=== PATIENT | female | born 1990 | race Caucasian/White ===

== ENCOUNTER → 2018-10-24 | Outpatient (CLI) | payer OTHER | END | disposition home or self-care (01) | LOC: RADECHMAIN 11:40 | PROVIDERS: ATTEND Obstetrics & Gynecology Obstetrics | DX: O99.413 Diseases of the circulatory system complicating pregnancy, third trimester (principal); Z3A.00 Weeks of gestation of pregnancy not specified; I49.3 Ventricular premature depolarization; R00.0 Tachycardia, unspecified | CPT/HCPCS: 93225; 93226 ==

== ENCOUNTER 2018-12-18 06:00 | Inpatient (IN) | payer OTHER ==
[2018-12-18] MEDS ORDERED: OXYTOCIN 10 UNIT/ML 1 ML VIAL IM PRN (06:10)
[2018-12-18] MEDS ORDERED: TERBUTALINE 1 MG/ML VIAL SQ PRN (06:10)
[2018-12-18] MEDS ORDERED: CARBOPROST TROMETHAMINE 250 MCG/ML 1 ML AMP IM PRN (06:10)
[2018-12-18] MEDS ORDERED: METHYLERGONOVINE 0.2 MG/ML 1 ML AMP IM PRN (06:10)
[2018-12-18] MEDS ORDERED: LIDOCAINE 0.5% (PF) 5 MG/ML (50 ML SDV) SQ PRN (06:10)
[2018-12-18 06:15] VITALS: BMI 40.6
[2018-12-18] MEDS ORDERED: LACTATED RINGERS 1,000 ML IV SCH ×2 (06:15→12:30)
[2018-12-18] MEDS ORDERED: OXYTOCIN 30 UNITS/500 ML NS 30 UNIT in SALINE 1 500ML.BAG IV SCH (06:15)
[2018-12-18] MEDS: LACTATED RINGERS 1,000 ML IV SCH ×3 (06:27→16:36)
[2018-12-18 06:38] LABS: Anisocytosis Slight; Basophils % (A) 0 %; Eosinophils # (A) 0.2 k/uL (0-0.7); Eosinophils % (A) 2 %; HCT 35.4 % (34.0-46.0); Lymphocytes # (A) 1.8 k/uL (1.0-4.8); Lymphocytes % (A) 16 %; MCH 26.8 pg (25.0-35.0); MCHC 33.8 g/dL (31.0-37.0); MCV 79.2 fL (80.0-100.0); Mean Platelet Volume 7.4; Monocytes # (A) 0.5 k/uL (0-1.0); Monocytes % (A) 5 %; Neutrophils # (A) 8.1 k/uL (1.3-7.7); Neutrophils % (A) 75 %; Platelet Count 340 k/uL (150-450); Poikilocytosis Slight; RBC 4.47 m/uL (3.80-5.40); RDW 16.1 % (11.5-15.5); WBC 10.9 k/uL (3.8-10.6)
--- NOTE | 2018-12-18 08:32 | P.HPOB ---
History of Present Illness H&P Date: 12/18/18 Chief Complaint: IUP @ 39 0/7 weeks This is a pleasant 28-year-old 2 para 1001 at 39-0/7 weeks that presents to labor and delivery for elective induction of labor. Patient has been receiving routine care since approximately 11 weeks of gestation. care has been uncomplicated. Patient notes good movement she denies contractions, loss of fluid or vaginal bleeding. On blood work she had a blood type of AB+, rubella immune, RPR n onreactive, B surface antigen negative, HIV negative, she did pass her 1 hour diabetes screen, group beta strep was negative on 11/26/18. Review of Systems Constitutional: Denies chills, Denies fatigue, Denies fever Cardiovascular: Reports leg edema Respiratory: Denies dyspnea Gastrointestinal: Denies nausea, Denies vomiting Genitourinary: Reports Psychiatric: Reports anxiety Past Medical History Past Medical History: Asthma History of Any Multi-Drug Resistant Organisms: None Reported Past Surgical History: Adenoidectomy, Tonsillectomy Past Anesthesia/Blood Transfusion Reactions: No Reported Reaction Past Psychological History: Depression, PTSD Smoking Status: Former smoker Past Drug Use History: None Reported - Past Family History Mother Family Medical History: Thyroid Disorder Medications and Allergies Home Medications Medication Instructions Recorded Confirmed Type Albuterol Sulfate [Proair Hfa] 1 - 2 puff INHALATION Q4H PRN #1 10/26/18 12/18/18 Rx inhaler Amoxicillin 1 tab PO ONCE 12/18/18 12/18/18 History Allergies Allergy/AdvReac Type Severity Reaction Status Date / Time No Known Allergies Allergy Verified 12/18/18 06:10 Exam Osteopathic Statement: *. No significant issues noted on an osteopathic structural exam other than those noted in the History and Physical/Consult. Vital Signs Temp Pulse Resp BP Pulse Ox 12/18/18 06:03 97.2 F L 117 H 18 123/74 94 L Intake and Output 12/17/18 12/18/18 12/18/18 22:59 06:59 14:59 Other: Weight 97.522 kg Targeted physical exam is performed on this date in general this a well- nourished well-developed female in no acute distress, she exhibits nonlabored breathing in her heart is noted have a regular rate and rhythm, her abdomen is noted to be gravid and appropriate for gestational age, cervix is 2/50/-3 amniotomy is performed and clear fluid was obtained. heart tones are noted to be category 1 with occasional variables and she is nanette every 3-4 minutes. Results Result Diagrams: 12/18/18 06:26 Abnormal Lab Results - Last 24 Hours (Table) 12/18/18 Range/Units 06:26 WBC 10.9 H (3.8-10.6) k/uL MCV 79.2 L (80.0-100.0) fL RDW 16.1 H (11.5-15.5) % Neutrophils # 8.1 H (1.3-7.7) k/uL Assessment and Plan (1) Term Current Visit: Yes Status: Acute Code(s): Z34.90 - ENCNTR FOR SUPRVSN OF NORMAL , UNSP, UNSP TRIMESTER SNOMED Code(s): 03431646 (2) Asthma Current Visit: Yes Status: Acute Code(s): J45.909 - UNSPECIFIED ASTHMA, UNCOMPLICATED SNOMED Code(s): 942846936 (3) ADD (attention deficit disorder) Current Visit: Yes Status: Acute Code(s): F98.8 - OTH BEHAV/EMOTN DISORD W ONSET USLY OCCUR IN CHLDHD AND ADOL SNOMED Code(s): 12751075 Plan: Patient is admitted to labor and delivery for Pitocin induction of labor, anticipate spontaneous vaginal delivery later today. Patient does request epidural placement by anesthesia when she becomes uncomfortable.
[2018-12-18] MEDS ORDERED: SUCCINYLCHOLINE CHLORIDE 100 MG/5 ML SYR IV ONE (11:19)
[2018-12-18] MEDS ORDERED: fentaNYL (PF) 50 MCG/ML 2 ML AMP ONE (11:19)
[2018-12-18] MEDS ORDERED: ePHEDrine SULFATE/0.9% NACL/PF 50 MG/5 ML SYRINGE IV ONE (11:19)
[2018-12-18] MEDS ORDERED: ONDANSETRON 4 MG/2 ML VIAL ONE (11:19)
[2018-12-18] MEDS ORDERED: MIDAZOLAM 2 MG/2 ML VIAL ONE (11:19)
[2018-12-18] MEDS ORDERED: PROPOFOL 10 MG/ML 20 ML VIAL IV ONE (11:19)
[2018-12-18] MEDS ORDERED: OXYTOCIN 10 UNIT/ML 1 ML VIAL ONE (11:19)
[2018-12-18] MEDS ORDERED: METOCLOPRAMIDE 5 MG/ML 2 ML VIAL IVP PRN (12:18)
[2018-12-18] MEDS ORDERED: diphenhydrAMINE 50 MG/ML 1 ML VIAL IVP PRN ×4 (12:18→19:14)
[2018-12-18] MEDS ORDERED: diphenhydrAMINE 50 MG CAP PO PRN ×2 (12:18→19:14)
[2018-12-18] MEDS ORDERED: ONDANSETRON 4 MG/2 ML VIAL IVP PRN (12:18)
[2018-12-18] MEDS ORDERED: diphenhydrAMINE 25 MG CAP PO PRN ×2 (12:18→19:14)
[2018-12-18] MEDS ORDERED: NALOXONE 0.4 MG/ML 1 ML VIAL IV PRN (12:18)
[2018-12-18] MEDS ORDERED: IBUPROFEN 600 MG TAB PO PRN (12:18)
[2018-12-18] MEDS ORDERED: ZOLPIDEM 5 MG TAB PO PRN ×2 (12:18→19:14)
[2018-12-18] MEDS ORDERED: HYDROcodone/APAP 5-325MG 1 EACH TAB PO PRN (12:18)
[2018-12-18] MEDS ORDERED: ACETAMINOPHEN TAB 325 MG TAB PO PRN ×2 (12:18→19:14)
--- NOTE | 2018-12-18 12:18 | P.OP ---
Date of Procedure: 12/18/18 Preoperative Diagnosis: IUP @39 0/7 weeks, NRFHTs Postoperative Diagnosis: same Procedure(s) Performed: Primary low transverse section Anesthesia: ANÍBAL Surgeon: Ora Mckay Civil Estimator #1: Jazzy Ramos Estimated Blood Loss (ml): 500 IV fluids (ml): 1,000 Urine output (ml): 200 Pathology: other (Placenta) Condition: stable Disposition: observation Indications for Procedure: This pleasant 28-year-old 2 para 1 at 39-0/7 weeks was admitted for labor and delivery for elective induction of labor. Patient was noted have variables with reassuring moderate variability in between, category 1. Patient was at the bedside swaying requested to go to the bathroom when she came back scalp electrode had, off upon vaginal exam the nurse noted her to be 2 cm, and palpated umbilical cord. heart tones were noted to be in the 90s patient was taken to the operating suite for a emergent . In the operating room heart tones were noted to be 100s with upward pressure on the head. Operative Findings: Normal uterus tubes and ovaries were appreciated amniotic fluid was noted to be clear. Viable male delivered at 1128, weight of 7 lbs. 8 oz. with Apgars of 5 and 8 at one and 5 minutes respectively. Description of Procedure: The patient was taken to the operating suite where general anesthesia was obtained without difficulty by the anesthesia department prior to anesthesia she was prepped and draped in normal sterile fashion. A Pfannenstiel skin incision was made with the scalpel and carried through to the underlying layer of fascia which was incised and extended laterally. The anterior aspect of the fascial incision was then grasped with koher clamps, elevated and underlying rectus muscles dissected off sharply. This was then repeated with the inferior aspect of the fascial incision. The rectus muscles were then in the midline the peritoneum was identified and entered. The bladder blade was then inserted into the abdomen a hysterotomy incision was then made in the infant was delivered without difficulty and handed off to waiting die engraver. The cord was then doubly clamped and cut prior to handing off the . The placenta was then removed manually and the uterus was cleared of all clots and debris. The uterus was then removed from the abdomen and the hysterotomy incision was closed 0 Vicryl in a running fashion from one lateral to midline and the other lateral edge the midline. Small bleeding was noted in the midline portion of the hysterotomy site therefore a [id number] suture was used to obtain hemostasis. The placenta was then copiously irrigated and hemostasis was appreciated once again on the hysterotomy site. The uterus was returned to the abdomen inspection of the hysterotomy site for a third time revealed hemostasis. The gutters were cleared of all clots and debris. The fascia was then closed in a running fashion from one lateral edge the midline and the other lateral edge the midline. The subcu tissue was then irrigated and closed with 3-0 Vicryl. The skin incision was then closed with 4-0 Vicryl in a subcuticular fashion. Since the was done prior to an official count was completed x-ray was then in the room. Steri-Strips and sterile dressings were applied as needed APPEARED to be correct 2, patient was taken to the her room awake in stable condition.
[2018-12-18] MEDS ORDERED: ALBUTEROL NEBULIZED 2.5 MG/3 ML INHALATION PRN (12:24)
--- NOTE | 2018-12-18 12:25 | XR ---
EXAMINATION TYPE: XR abdomen 1V DATE OF EXAM: 12/18/2018 Comparison: None Clinical History: 28-year-old female OR count verification, emergency Findings: No retained sponge or metallic surgical instrument is identified. Enlarged uterus compatible with rec ent delivery. Impression: No retained sponge or metallic surgical instrument identified.
[2018-12-18] MEDS ORDERED: OXYTOCIN 20 UNITS/1000 ML NS 1,000 ML IV SCH ×2 (12:30→19:14)
[2018-12-18] MEDS ORDERED: IBUPROFEN IV 800 MG in SODIUM CHLORIDE 0.9% 250 ML IV ONE (13:00)
[2018-12-18] MEDS ORDERED: ACETAMINOPHEN IV (For NPO) 1,000 MG in EMPTY BAG 1 BAG IVPB ONE (13:00)
[2018-12-18] MEDS ORDERED: HYDROCORTISONE 2.5% RECTAL CREAM 30 GM TUBE RECTAL PRN (19:14)
[2018-12-18] MEDS ORDERED: LANOLIN CREAM 5 GM TUBE TOPICAL PRN (19:14)
[2018-12-18] MEDS ORDERED: BENZOCAINE/MENTHOL SPRAY 1 GM/SPRAY AEROSOL TOPICAL PRN (19:14)
[2018-12-18] MEDS ORDERED: WITCH HAZEL 1 EACH MED..PAD TOPICAL PRN (19:14)
[2018-12-18] MEDS ORDERED: SIMETHICONE 80 MG CHEWABLE PO PRN (19:14)
[2018-12-18] MEDS ORDERED: SENNOSIDES-DOCUSATE SODIUM 1 EACH TAB PO SCH (20:00)
[2018-12-18] MEDS: IBUPROFEN 600 MG TAB PO PRN (21:55)
[2018-12-18] MEDS: SENNOSIDES-DOCUSATE SODIUM 1 EACH TAB PO SCH (22:00)
[2018-12-19] MEDS: LACTATED RINGERS 1,000 ML IV SCH (00:55)
[2018-12-19] MEDS: HYDROcodone/APAP 5-325MG 1 EACH TAB PO PRN ×4 (01:03→20:06)
[2018-12-19] MEDS: IBUPROFEN 600 MG TAB PO PRN ×4 (03:43→23:04)
[2018-12-19 07:18] LABS: Anisocytosis Slight; Basophils % (A) 0 %; Eosinophils # (A) 0.2 k/uL (0-0.7); Eosinophils % (A) 2 %; HCT 28.9 % (34.0-46.0); Lymphocytes # (A) 1.2 k/uL (1.0-4.8); Lymphocytes % (A) 13 %; MCH 26.4 pg (25.0-35.0); MCHC 32.6 g/dL (31.0-37.0); MCV 80.9 fL (80.0-100.0); Mean Platelet Volume 7.7; Monocytes # (A) 0.5 k/uL (0-1.0); Monocytes % (A) 5 %; Neutrophils # (A) 7.3 k/uL (1.3-7.7); Neutrophils % (A) 79 %; Platelet Count 263 k/uL (150-450); RBC 3.57 m/uL (3.80-5.40); RDW 16.5 % (11.5-15.5); WBC 9.3 k/uL (3.8-10.6)
[2018-12-19 07:28] LABS: HGB 9.4 gm/dL (11.4-16.0)
--- NOTE | 2018-12-19 07:43 | P.PN ---
Subjective Progress Note Date: 12/19/18 Principal diagnosis: Postoperative day #1 Slept well. Positive flatus. Pain well controlled. No complaints Objective - Vital Signs Vital signs: Vital Signs Temp 98.1 F 12/19/18 03:45 Pulse 88 12/19/18 03:45 Resp 18 12/19/18 03:45 BP 109/64 12/19/18 03:45 Pulse Ox 99 12/19/18 03:45 Intake & Output 12/18/18 12/19/18 12/19/18 18:59 06:59 18:59 Intake Total 100 Output Total 750 3150 Balance -750 -3050 Intake: Oral 100 Output: Urine 750 3150 Uretheral (Islas) 1000 Other: # Voids 1 - Constitutional General appearance: Present: average body habitus, cooperative - EENT Eyes: Present: PERRLA ENT: Present: hearing grossly normal - Respiratory Respiratory: bilateral: CTA - Cardiovascular Rhythm: regular - Gastrointestinal Gastrointestinal Comment(s): Incision clean and dry, intact. Fundus firm, midline, symmetric, 18 week size, nontender. - Integumentary Integumentary: Present: normal - Neurologic Neurologic: Present: CNII-XII intact - Musculoskeletal Musculoskeletal: Present: gait normal, strength equal bilaterally - Psychiatric Psychiatric: Present: A&O x's 3, appropriate affect - Labs CBC & Chem 7: 12/19/18 06:43 Labs: Abnormal Lab Results - Last 24 Hours (Table) 12/19/18 Range/Units 06:43 RBC 3.57 L (3.80-5.40) m/uL Hgb 9.4 L D (11.4-16.0) gm/dL Hct 28.9 L (34.0-46.0) % RDW 16.5 H (11.5-15.5) % Assessment and Plan Assessment: Doing well postoperative day #1. Plan: Begin ferrous sulfate twice daily. Advanced diet and activity. Likely circumcision tomorrow. Time with Patient: Less than 30
[2018-12-19] MEDS: FERROUS SULFATE 325 MG TAB PO SCH ×2 (07:56→18:59)
[2018-12-19] MEDS: SENNOSIDES-DOCUSATE SODIUM 1 EACH TAB PO SCH ×2 (07:56→20:05)
[2018-12-20 00:47] VITALS: TEMP 98.3
[2018-12-20] MEDS: HYDROcodone/APAP 5-325MG 1 EACH TAB PO PRN (08:15)
[2018-12-20] MEDS: FERROUS SULFATE 325 MG TAB PO SCH (08:17)
[2018-12-20] MEDS: SENNOSIDES-DOCUSATE SODIUM 1 EACH TAB PO SCH (08:17)
--- NOTE | 2018-12-20 08:26 | P.DS ---
Providers Date of admission: 12/18/18 06:00 Expected date of discharge: 12/20/18 Attending physician: Ora Mckay Primary care physician: Stated None Hospital Course: This is a 28-year-old white female 2 para 1001 EDC 12/25/1938 weeks gestation. Patient was admitted for induction. was essentially unremarkable, group B strep cultures negative, blood type AB+, rubella status immune. Please see dictated history and physical for details. Throughout the course of the first stage of labor, heart tones were nonreassuring. Vaginal examination suggested prolapsed cord, and patient underwent a primary low transverse section with general anesthetic. She gave to a liveborn male with scores of 58 and 8 at one and 5 and 10 minutes respectively. weighed 7 lbs. 8 oz. or 3400 g. Please see dictated operative note for details. Circumcision has been performed on the who is doing well. Patient is also doing well, she is voiding, ambulating, and passing flatus without difficulty. Vital signs are stable and she is afebrile. Fundus is firm and in the midline, symmetric and 18 week size. Extremities are negative for edema. Breast-feeding is going well. I have given the patient a prescription for a double electric breast pump to be used as needed. Her incision is clean and dry, intact, Steri-Strips applied. Patient is being discharged home today in very good condition. She will follow- up in the office in 2 weeks for incision check. I have reminded her no intercourse, tampons or douching. She will use Advil or Motrin or Aleve as needed for pain. She will call with any fevers shakes or chills, foul smelling or copious lochia, with the passage of large blood clots, with any pain not alleviated by upzx-xxu-xllfero products, or indeed with any concerns. Patient Condition at Discharge: Good Plan - Discharge Summary Discharge Rx Participant: No New Discharge Prescriptions: No Action Albuterol Sulfate [Proair Hfa] 1 - 2 puff INHALATION Q4H PRN #1 inhaler PRN Reason: Shortness Of Breath Amoxicillin 1 tab PO ONCE Discharge Medication List Albuterol Sulfate [Proair Hfa] 1 - 2 puff INHALATION Q4H PRN #1 inhaler 10/26/18 [Rx] Amoxicillin 1 tab PO ONCE 12/18/18 [History] Follow up Appointment(s)/Referral(s): Ora Mckay DO [Doctor of Osteopathic Medicine] - 2 Weeks
[2018-12-20 08:30] VITALS: RESP 20
[2018-12-20 08:32] VITALS: BP 124/68; PULSE 88
== END 2018-12-20 14:15 | disposition home or self-care (01) | DRG 788 ==
LOC: 4FBP 06:00
PROVIDERS: ADMIT Obstetrics & Gynecology Obstetrics; ATTEND Obstetrics & Gynecology Obstetrics
PROC: 3E033VJ Introduction of Other Hormone into Peripheral Vein, Percutaneous Approach (ICD-10-PCS; 2018-12-18)
PROC: 10907ZC Drainage of Amniotic Fluid, Therapeutic from Products of Conception, Via Natural or Artificial Opening (ICD-10-PCS; 2018-12-18)
PROC: 4A1H7CZ Monitoring of Products of Conception, Cardiac Rate, Via Natural or Artificial Opening (ICD-10-PCS; 2018-12-18)
PROC: 4A1H7HZ Monitoring of Products of Conception, Cardiac Sound, Via Natural or Artificial Opening (ICD-10-PCS; 2018-12-18)
PROC: 4A1H7FZ Monitoring of Products of Conception, Cardiac Rhythm, Via Natural or Artificial Opening (ICD-10-PCS; 2018-12-18)
PROC: 10H073Z Insertion of Monitoring Electrode into Products of Conception, Via Natural or Artificial Opening (ICD-10-PCS; 2018-12-18)
PROC: 10D00Z1 Extraction of Products of Conception, Low, Open Approach (ICD-10-PCS; principal; 2018-12-18 11:25)
DX: O76 Abnormality in fetal heart rate and rhythm complicating labor and delivery (principal); O99.52 Diseases of the respiratory system complicating childbirth; J45.909 Unspecified asthma, uncomplicated; O99.344 Other mental disorders complicating childbirth; F98.8 Other specified behavioral and emotional disorders with onset usually occurring in childhood and adolescence; Z37.0 Single live birth; Z3A.39 39 weeks gestation of pregnancy; Z87.891 Personal history of nicotine dependence; Z98.890 Other specified postprocedural states; Z86.59 Personal history of other mental and behavioral disorders; Z83.49 Family history of other endocrine, nutritional and metabolic diseases
CPT/HCPCS: 74018; 85025; 86850; 86900; 86901; 88307

== ENCOUNTER 2019-10-18 19:46 | Emergency (ER) | payer OTHER ==
[2019-10-18 19:50] VITALS: RESP 18
[2019-10-18] MEDS ORDERED: IBUPROFEN 600 MG TAB PO STA (20:09)
[2019-10-18] MEDS ORDERED: DEXAMETHASONE 4 MG TAB PO STA (20:09)
[2019-10-18] MEDS ORDERED: ACETAMINOPHEN TAB 500 MG TAB PO STA (20:09)
[2019-10-18] MEDS ORDERED: IPRATROPIUM-ALBUTEROL 3 ML NEB INHALATION STA (20:09)
--- NOTE | 2019-10-18 20:12 | ED ---
URI HPI - General Chief Complaint: Upper Respiratory Infection Stated Complaint: Asthma; cough Time Seen by Provider: 10/18/19 20:05 Source: patient, RN notes reviewed, old records reviewed Mode of arrival: ambulatory Limitations: no limitations - History of Present Illness Initial Comments: This is a 29-year-old female DF for evaluation patient has a for evaluation of not feeling well recent exposure to influenza patient is cough and congestion history of asthma nonsmoker. No recent travel history sick contacts she have fevers no fevers have resolved. No chest pain no current shortness of breath she does feel wheezy. Again no recent travel history or sick contacts not feeling well MD Complaint: fever, cough -: days(s) Severity: moderate Severity scale (1-10): 4 Quality: dull Consistency: constant Improves With: nothing Worsens With: nothing Context: new medications Associated Symptoms: denies other symptoms Treatments Prior to Arrival: none - Related Data Home Medications Medication Instructions Recorded Confirmed Amoxicillin 1 tab PO ONCE 12/18/18 12/18/18 Previous Rx's Medication Instructions Recorded Albuterol Sulfate [Proair Hfa] 1 - 2 puff INHALATION Q4H PRN #1 10/26/18 inhaler Albuterol Nebulized [Ventolin 2.5 mg INHALATION Q4H PRN #25 nebu 10/18/19 Nebulized] Albuterol Sulfate [Proair Hfa] 1 - 2 puff INHALATION Q4H PRN #1 10/18/19 inhaler predniSONE 50 mg PO DAILY #5 tab 10/18/19 Allergies Allergy/AdvReac Type Severity Reaction Status Date / Time No Known Allergies Allergy Verified 12/18/18 06:10 Review of Systems ROS Statement: Those systems with pertinent positive or pertinent negative responses have been documented in the HPI. ROS Other: All systems not noted in ROS Statement are negative. Past Medical History Past Medical History: Asthma History of Any Multi-Drug Resistant Organisms: None Reported Past Surgical History: Adenoidectomy, Tonsillectomy Past Anesthesia/Blood Transfusion Reactions: No Reported Reaction Past Psychological History: Depression, PTSD Smoking Status: Former smoker Past Drug Use History: None Reported - Past Family History Mother Family Medical History: Thyroid Disorder General Exam Limitations: no limitations General appearance: alert, in no apparent distress Head exam: Present: atraumatic, normocephalic, normal inspection Eye exam: Present: normal appearance, PERRL, EOMI. Absent: scleral icterus, conjunctival injection, periorbital swelling ENT exam: Present: normal exam, mucous membranes moist Neck exam: Present: normal inspection. Absent: tenderness, meningismus, lymphadenopathy Respiratory exam: Present: wheezes, decreased breath sounds, prolonged expiratory. Absent: respiratory distress, rales, rhonchi, stridor Cardiovascular Exam: Present: regular rate, normal rhythm, normal heart sounds. Absent: systolic murmur, diastolic murmur, rubs, gallop, clicks GI/Abdominal exam: Present: soft, normal bowel sounds. Absent: distended, tenderness, guarding, rebound, rigid Extremities exam: Present: normal inspection, full ROM, normal capillary refill. Absent: tenderness, pedal edema, joint swelling, calf tenderness Back exam: Present: normal inspection Neurological exam: Present: alert, oriented X3, CN II-XII intact Psychiatric exam: Present: normal affect, normal mood Skin exam: Present: warm, dry, intact, normal color. Absent: rash Course Vital Signs 10/18/19 10/18/19 10/18/19 19:47 20:21 20:36 Temperature 97.9 F Pulse Rate 98 85 88 Respiratory 18 Rate Blood Pressure 104/61 O2 Sat by Pulse 98 Oximetry - Reevaluation(s) Reevaluation #1: 10/18/19 20:11 medical record is reviewed Reevaluation #2: 10/18/19 21:30 Patient feeling better with treatment here in the ER Medical Decision Making - Medical Decision Making 25 female DF for evaluation patient has a for evaluation of cough positive for influenza A with bronchitis. Patient will be discharged home - Lab Data Lab Results 10/18/19 Range/Units 20:14 Influenza Type A RNA Detected H (Not Detectd) Influenza Type B (PCR) Not Detected (Not Detectd) - Radiology Data Radiology results: report reviewed (Chest x-ray is negative for acute disease), image reviewed Disposition Clinical Impression: Asthma, Asthmatic bronchitis, Influenza, Influenza A Disposition: HOME SELF-CARE Condition: Good Instructions (If sedation given, give patient instructions): Influenza (ED), Asthma (ED) Prescriptions: predniSONE 50 mg PO DAILY #5 tab Albuterol Sulfate [Proair Hfa] 1 - 2 puff INHALATION Q4H PRN #1 inhaler PRN Reason: Shortness Of Breath Albuterol Nebulized [Ventolin Nebulized] 2.5 mg INHALATION Q4H PRN #25 nebu PRN Reason: Shortness Of Breath Is patient prescribed a controlled substance at d/c from ED?: No Referrals: Chrissy Rodriguez MD [Primary Care Provider] - 1-2 days
--- NOTE | 2019-10-18 20:48 | XR ---
EXAMINATION TYPE: XR chest 2V DATE OF EXAM: 10/18/2019 COMPARISON: 10/25/2018 HISTORY: Chest pain TECHNIQUE: FINDINGS: Heart and mediastinum are normal. Lungs are clear. Diaphragm is normal. Bony thorax appears normal. IMPRESSION: Normal chest. No change.
[2019-10-18 21:37] VITALS: BP 110/60; PULSE 85; TEMP 98
== END 2019-10-18 21:38 | disposition home or self-care (01) ==
LOC: EC 19:46
DX: J10.1 Influenza due to other identified influenza virus with other respiratory manifestations (principal); J45.909 Unspecified asthma, uncomplicated; Z87.891 Personal history of nicotine dependence
CPT/HCPCS: 94640; 87502; 71046; 99284; J8540

== ENCOUNTER 2023-01-03 07:06 | Outpatient (CLI) | payer OTHER ==
[2023-01-03 08:13] VITALS: BP 118/66; PULSE 105; RESP 16; TEMP 97.6
--- NOTE | 2023-01-24 19:13 | P.MSEPDOC ---
Presenting Problems - Arrival Data Date of Arrival on Unit: 01/03/23 Time of Arrival on Unit: 07:06 Mode of Transport: Ambulatory - Complaint OB-Reason for Admission/Chief Complaint: Other Comment: Left sided muscle pain secondary to cough Medical History - Information : 3 Para: 2 Term: 2 : 0 Abortions: Spontaneous or Elective: 0 Number of Living Children: 2 - Gestational Age Gestational Age by ANGEL (wks/days): 26 Weeks and 5 Days Review of Systems - Review of Systems Constitutional: Fatigue Breast: No problems ENT: Cough Cardiovascular: No problems Respiratory: No problems Gastrointestinal: No problems Genitourinary: No problems Musculoskeletal: No problems Neurological: No problems Skin: No problems Vital Signs - Temperature Temperature: 97.6 F Temperature Source: Temporal Artery Scan - Pulse Right Brachial Pulse Rate: 105 Pulse Assessment Method: Automatic Cuff - Respirations Respiratory Rate: 16 Oxygen Delivery Method: Room Air O2 Sat by Pulse Oximetry: 98 - Blood Pressure Right Arm Blood Pressure: 118/66 Blood Pressure Mean: 83 Blood Pressure Source: Automatic Cuff Medical Screen Scoring - Assessment - Baby A Baseline FHR: 135 Heart Rate - NICHD Category: Category I (Normal) Physician Notification - Physician Notified Physician Notified Date: 01/03/23 Physician Notified Time: 07:41 Physician: Ora Mckay New Order Received: Yes - Notification Comment Comment: Dr. Mckay given report on pt. Pt presents to triage with increase in dry unproductive cough and left sided muscle pain r/t coughing. VS WNL. O2 98%. Pt reports covid 2 months and has asthma. Pt denies attempting comfort measures. Orders recieved pt may have 1000mg Tylenol PO. Pt to be discharged to home. RN to write note on script per Dr. Mckay "Off work secondary to cough". To educate pt she may take Robutussin and tylenol PM and to rest. Maternal Triage Index - Non-Urgent/Priority 4 Non-Urgent Priority 4: Yes Criteria Met for Priority 4: Left sided muscle pain secondary to cough. Disposition - Disposition OB Disposition: Discharge to home Discharge Date: 01/03/23 Discharge Time: 07:50 I agree with the RN Medical Screening Exam: Yes Case reviewed; plan agreed upon as documented in EMR&OBIX.: Yes Diagnosis: RELATED CONDITIONS, UNSPECIFIED, THIRD TRIMESTER
== END 2023-01-03 07:50 | disposition home or self-care (01) ==
LOC: FBPOP 07:06
PROVIDERS: ATTEND Obstetrics & Gynecology
DX: O26.893 Other specified pregnancy related conditions, third trimester (principal); Z3A.26 26 weeks gestation of pregnancy; Z91.048 Other nonmedicinal substance allergy status; Z87.891 Personal history of nicotine dependence
CPT/HCPCS: 99213

== ENCOUNTER 2023-02-26 10:54 | Outpatient (CLI) | payer OTHER ==
[2023-02-26 12:30] VITALS: BP 117/69; PULSE 114; RESP 17
--- NOTE | 2023-03-20 17:55 | P.MSEPDOC ---
Presenting Problems - Arrival Data Date of Arrival on Unit: 02/26/23 Time of Arrival on Unit: 10:54 Mode of Transport: Ambulatory - Complaint OB-Reason for Admission/Chief Complaint: Decreased Movement Medical History - Information : 3 Para: 2 Term: 2 : 0 Abortions: Spontaneous or Elective: 0 Number of Living Children: 2 - Gestational Age Gestational Age by ANGEL (wks/days): 34 Weeks and 2 Days Review of Systems - Review of Systems Constitutional: No problems Breast: No problems ENT: No problems Cardiovascular: No problems Respiratory: No problems Gastrointestinal: No problems Genitourinary: No problems Musculoskeletal: No problems Neurological: No problems Skin: No problems Vital Signs - Pulse Right Brachial Pulse Rate: 114 Pulse Assessment Method: Automatic Cuff - Respirations Respiratory Rate: 17 Oxygen Delivery Method: Room Air O2 Sat by Pulse Oximetry: 98 - Blood Pressure Right Arm Blood Pressure: 117/69 Blood Pressure Mean: 85 Blood Pressure Source: Automatic Cuff Medical Screen Scoring - Assessment - Baby A Baseline FHR: 140 Heart Rate - NICHD Category: Category I (Normal) NST: Reactive Physician Notification - Physician Notified Physician Notified Date: 02/26/23 Physician Notified Time: 11:47 Physician: Ora Mckay New Order Received: Yes - Notification Comment Comment: Dr. Mckay given report on pt. Pt c/o. VS. WNL. Cat 1 FHTs noted. movement noted audibly. and by palpation. movement noted per pt less. infrequently. Orders recieved to d/c pt to home. Pt. to keep apt on 02/28. Maternal Triage Index - Urgent/Priority 2 Urgent Priority 2: Yes Provider Notified: Ora Mckay Provider Notified Time: 11:47 Criteria Met for Priority 2: Pt c/o of decreased movement. Disposition - Disposition OB Disposition: Discharge to home Discharge Date: 02/26/23 Discharge Time: 12:02 I agree with the RN Medical Screening Exam: Yes Case reviewed; plan agreed upon as documented in EMR&OBIX.: Yes Diagnosis: DECREASED MOVEMENTS, THIRD TRIMESTER, FETUS 1
== END 2023-02-26 12:02 | disposition home or self-care (01) ==
LOC: FBPOP 10:54
PROVIDERS: ATTEND Obstetrics & Gynecology Obstetrics
DX: O36.8131 Decreased fetal movements, third trimester, fetus 1 (principal); O99.333 Smoking (tobacco) complicating pregnancy, third trimester; Z3A.34 34 weeks gestation of pregnancy; Z91.048 Other nonmedicinal substance allergy status
CPT/HCPCS: 59025; 99213

== ENCOUNTER 2023-03-18 09:57 | Inpatient (IN) | payer OTHER ==
[2023-03-15 14:22] VITALS: BMI 40.8
[2023-03-18] MEDS ORDERED: miSOPROStoL 200 MCG TAB PO PRN (10:32)
[2023-03-18] MEDS ORDERED: METHYLERGONOVINE 0.2 MG/ML 1 ML AMP IM PRN (10:32)
[2023-03-18] MEDS ORDERED: CARBOPROST TROMETHAMINE 250 MCG/ML 1 ML AMP IM PRN (10:32)
[2023-03-18] MEDS ORDERED: LACTATED RINGERS 1,000 ML IV ONE (10:32)
[2023-03-18] MEDS ORDERED: OXYTOCIN 10 UNIT/ML 1 ML VIAL IM PRN (10:32)
[2023-03-18] MEDS ORDERED: TRANEXAMIC 1,000 MG/100ML-NACL 1,000 MG in EMPTY BAG 1 BAG IV PRN (10:32)
[2023-03-18] MEDS ORDERED: CITRIC ACID-SODIUM CITRATE 15 ML CUP PO ONE (10:32)
[2023-03-18] MEDS ORDERED: OXYTOCIN 30 UNITS/500 ML NS 30 UNIT in SALINE 1 500ML.BAG IV SCH (10:45)
[2023-03-18 10:47] LABS: Basophils % (A) 0 %; Eosinophils # (A) 0.1 k/uL (0-0.7); Eosinophils % (A) 2 %; HCT 33.7 % (34.0-46.0); HGB 11.9 gm/dL (11.4-16.0); Lymphocytes # (A) 1.1 k/uL (1.0-4.8); Lymphocytes % (A) 12 %; MCH 29.1 pg (25.0-35.0); MCHC 35.3 g/dL (31.0-37.0); MCV 82.5 fL (80.0-100.0); Monocytes # (A) 0.4 k/uL (0-1.0); Monocytes % (A) 4 %; Neutrophils # (A) 7.2 k/uL (1.3-7.7); Neutrophils % (A) 81 %; Platelet Count 250 k/uL (150-450); RBC 4.09 m/uL (3.80-5.40); RDW 14.7 % (11.5-15.5); WBC 8.9 k/uL (3.8-10.6)
[2023-03-18] MEDS ORDERED: ZOLPIDEM 5 MG TAB PO PRN (13:04)
[2023-03-18] MEDS ORDERED: diphenhydrAMINE 25 MG CAP PO PRN (13:04)
[2023-03-18] MEDS ORDERED: NALOXONE 0.4 MG/ML 1 ML VIAL IV PRN (13:04)
[2023-03-18] MEDS ORDERED: diphenhydrAMINE 50 MG CAP PO PRN (13:04)
[2023-03-18] MEDS ORDERED: ONDANSETRON 4 MG/2 ML VIAL IVP PRN (13:04)
[2023-03-18] MEDS ORDERED: diphenhydrAMINE 50 MG/ML 1 ML VIAL IVP PRN ×2 (13:04)
[2023-03-18] MEDS ORDERED: METOCLOPRAMIDE 5 MG/ML 2 ML VIAL IVP PRN (13:04)
[2023-03-18] MEDS ORDERED: ALBUTEROL HFA INHALER INHALATION PRN (13:06)
--- NOTE | 2023-03-18 13:09 | P.HPOB ---
History of Present Illness H&P Date: 03/18/23 Chief Complaint: IUP at 37-0/7 weeks, polyhydramnios This is a 32-year-old 002 at 37-0/7 weeks that presents for repeat section. Patient has been followed during the for known polyhydramnios. Patient was seen at [facility] where fluid reduction was performed, approximately 2 L of amniotic fluid was removed on her visit. Plan for delivery was 37 weeks secondary to polyhydramnios. Maternal- medicine agreed no structural abnormalities were appreciated on ultrasound. Patient negative genetic screening in the first trimester. Patient is been noting good movement, denied loss of fluid or vaginal bleeding. She is a history of 2 prior C-sections requesting repeat. Review of Systems Constitutional: Denies chills, Denies fatigue, Denies fever Ears, nose, mouth and throat: Denies headache Cardiovascular: Reports leg edema Respiratory: Denies dyspnea Gastrointestinal: Denies constipation, Denies diarrhea, Denies nausea, Denies vomiting Genitourinary: Reports Past Medical History Past Medical History: Asthma History of Any Multi-Drug Resistant Organisms: None Reported Past Surgical History: Adenoidectomy, Section, Tonsillectomy Past Anesthesia/Blood Transfusion Reactions: No Reported Reaction Smoking Status: Never smoker - Past Family History Mother Family Medical History: Thyroid Disorder Medications and Allergies Home Medications Medication Instructions Recorded Confirmed Type Albuterol Nebulized [Ventolin 2.5 mg INHALATION Q4H PRN #25 nebu 10/18/19 03/15/23 Rx Nebulized] Albuterol Sulfate [Proair Hfa] 1 - 2 puff INHALATION Q4H PRN #1 10/18/19 03/15/23 Rx inhaler Escitalopram [Lexapro] 10 mg PO DAILY 09/11/22 03/15/23 History Fluticasone Propionate 44 Mcg 1 - 2 puff INHALATION TID 01/03/23 03/15/23 History [Flovent 44 Mcg Inhaler] Vit No.179/Iron/Folic 1 tab PO ONCE 01/03/23 03/15/23 History [ Tablet] Allergies Allergy/AdvReac Type Severity Reaction Status Date / Time house dust Allergy Mild Wheezing Verified 03/18/23 10:32 Exam Osteopathic Statement: *. No significant issues noted on an osteopathic structural exam other than those noted in the History and Physical/Consult. Targeted physical exam is performed in this date and ore miner a well-nourished well-developed female in no acute distress, breathing is nonlabored, heart has a regular rate and rhythm, abdomen is gravid and consistent with diagnosis of polyhydramnios, heart tones are noted to be category 1 and she is nanette irregularly. Cervical exam is deferred Results Result Diagrams: 03/18/23 10:35 Abnormal Lab Results - Last 24 Hours (Table) 03/18/23 Range/Units 10:35 Hct 33.7 L (34.0-46.0) % Assessment and Plan (1) 37 weeks gestation of Current Visit: Yes Status: Acute Code(s): Z3A.37 - 37 WEEKS GESTATION OF SNOMED Code(s): 28991045 (2) Polyhydramnios Current Visit: Yes Status: Acute Code(s): O40.9XX0 - POLYHYDRAMNIOS, UNSP TRIMESTER, NOT APPLICABLE OR UNSP SNOMED Code(s): 86135953 (3) H/O section Current Visit: Yes Status: Acute Code(s): Z98.891 - HISTORY OF UTERINE SCAR FROM PREVIOUS SURGERY SNOMED Code(s): 135585728 Plan: 32-year-old at 37-0/7 weeks that presents for repeat section. Patient has a known diagnosis of polyhydramnios, and has seen in maternal- medicine. She underwent amniotic fluid reduction last week at [facility] for 2 L. Recommendation for delivery at 37 weeks secondary to maternal discomfort and increasing polyhydramnios. Patient is counseled on and all questions are answered. Patient states she is done with childbearing and wishes tubal ligation in addition Patient states understanding and wishes to proceed.
--- NOTE | 2023-03-18 13:13 | P.OP ---
Date of Procedure: 03/18/23 Preoperative Diagnosis: IUP at 37-0/7 weeks, polyhydramnios, history of 2 Postoperative Diagnosis: Same Procedure(s) Performed: Repeat section with tubal ligation, vacuum assist Anesthesia: spinal Surgeon: Ora Mckay Email Marketing Coordinator #1: Jazzy Ramos Pathology: other (Placenta) Condition: stable Disposition: observation Indications for Procedure: 32-year-old at 37-0/7 weeks with known history of polyhydramnios and 2 prior C-sections. Operative Findings: Viable male delivered at 1239 Normal uterus tubes and ovaries were appreciated, vacuum assist secondary to floating nature of head, head noted to be in the occiput posterior presentation. Given excessive amount of amniotic fluid vacuum did pop off 3 times. Vacuum was applied with pressure only, activated into the green zone. Description of Procedure: Patient was taken back to the operating suite where spinal anesthesia was found to be adequate by the anesthesia department. She was prepped and draped in the normal sterile fashion in the dorsal supine position a Islas catheter was placed under sterile technique. A Pfannenstiel skin incision was made with the scalpel and carried through the underlying layer of fascia. The fascia was incised in the midline and extended laterally. The superior aspect of the fascial incision was then grasped jamar clamps, elevated and underlying rectus muscles dissected off sharply. The inferior aspect of the fascial incision was grasped jamar clamps, elevated and underlying rectus muscles dissected off sharply. The rectus muscles were in the midline the peritoneum was identified and entered. Bladder flap was then created using sharp and blunt dissection. The bladder blade was then reinserted and the bladder was away from the operating field. The scalpel was used to make a hysterotomy incision and copious clear fluid was noted on amniotomy. The was noted to be in a vertex presentation. Floating high in the mid uterus. Fluid was released. Inability to elevate the head through the hysterotomy incision therefore vacuum was placed with good placement. 3 pop offs were appreciated. head was noted to be brought through the hysterotomy incision at that time and with fundal support the infant was delivered in the usual fashion. The umbilical cord was doubly clamped and cut. The infant was handed off to awaiting RN. The placenta was delivered manually and the uterus exteriorized and cleared of all clots and debris. The uterine incision was closed with 0 Vicryl in a running locked fashion. Hemostasis was appreciated. Right fallopian tube was visualized elevated and a Filshie clip applicator was placed across the fallopian tube, this was then repeated on the opposite side. Hemostasis was noted and complete correction of the fallopian tube was appreciated. The hysterotomy incision was inspected once again hemostasis was noted. The uterus was then returned to the abdomen. A small oozing was noted in the lower uterine segment therefore Surgicel was placed along the hysterotomy incision. Hemostasis was noted. The peritoneum was then loosely reapproximated. The rectus muscles were inspected and any points of bleeding were made hemostatic with the Bovie. The fascia was closed 0 Vicryl in a running fashion from one lateral edge the midline and the other lateral edge the midline. The subcutaneous tissue was irrigated found to be hemostatic and closed with 3-0 Vicryl in a running fashion. The skin was then closed with 4-0 Vicryl subcuticular fashion. Steri-Strips were applied. Sterile dressing was then applied. All counts were correct 2 at the end of the delivery. Patient tolerated delivery well, infant was taken to the nursery for observation.
[2023-03-18] MEDS: ACETAMINOPHEN IV (For NPO) 1,000 MG in EMPTY BAG 1 BAG IVPB SCH (13:43)
[2023-03-18] MEDS: PRENATAL VIT-IRON-FOLIC ACID 1 EACH TABLET PO SCH (19:36)
[2023-03-18] MEDS: LACTATED RINGERS 1,000 ML IV SCH ×4 (19:36→21:10)
[2023-03-18] MEDS: IBUPROFEN 600 MG TAB PO SCH (20:46)
[2023-03-18] MEDS: IBUPROFEN IV 800 MG in SODIUM CHLORIDE 0.9% 250 ML IV SCH ×2 (20:46→21:09)
[2023-03-18] MEDS: SENNOSIDES-DOCUSATE SODIUM 1 EACH TAB PO SCH (21:10)
[2023-03-18] MEDS: FLUTICASONE 44 MCG INHALER INHALATION SCH (21:44)
[2023-03-19] MEDS: ACETAMINOPHEN IV (For NPO) 1,000 MG in EMPTY BAG 1 BAG IVPB SCH (01:01)
[2023-03-19] MEDS: ACETAMINOPHEN TAB 500 MG TAB PO SCH ×4 (01:07→20:26)
[2023-03-19] MEDS: IBUPROFEN IV 800 MG in SODIUM CHLORIDE 0.9% 250 ML IV SCH ×3 (03:26→14:25)
[2023-03-19] MEDS: IBUPROFEN 600 MG TAB PO SCH ×4 (03:33→22:04)
[2023-03-19] MEDS: LACTATED RINGERS 1,000 ML IV SCH ×4 (06:53→21:02)
[2023-03-19 07:16] LABS: Basophils % (A) 0 %; Eosinophils # (A) 0.1 k/uL (0-0.7); Eosinophils % (A) 1 %; HCT 30.9 % (34.0-46.0); HGB 10.3 gm/dL (11.4-16.0); Lymphocytes # (A) 0.7 k/uL (1.0-4.8); Lymphocytes % (A) 7 %; MCH 28.3 pg (25.0-35.0); MCHC 33.3 g/dL (31.0-37.0); Mean Platelet Volume 7.6; Monocytes # (A) 0.4 k/uL (0-1.0); Monocytes % (A) 4 %; Neutrophils # (A) 9.3 k/uL (1.3-7.7); Neutrophils % (A) 87 %; Platelet Count 244 k/uL (150-450); RBC 3.64 m/uL (3.80-5.40); RDW 14.9 % (11.5-15.5); WBC 10.6 k/uL (3.8-10.6)
[2023-03-19] MEDS: SENNOSIDES-DOCUSATE SODIUM 1 EACH TAB PO SCH ×2 (07:48→20:26)
[2023-03-19] MEDS: ESCITALOPRAM 10 MG TAB PO SCH (07:48)
[2023-03-19] MEDS: PRENATAL VIT-IRON-FOLIC ACID 1 EACH TABLET PO SCH (07:48)
--- NOTE | 2023-03-19 08:36 | P.PNOBGPC ---
Subjective - Subjective Principal diagnosis: Postop day 1, repeat section with tubal ligation Interval history: Patient is doing well postoperatively. She is ambulating and voiding without difficulty. States her pain is well-controlled. She denies concerns. She is tolerating a regular diet without nausea or vomiting. Her lochia is minimal to moderate Patient reports: Reports appetite normal, Reports voiding normally, Reports pain well controlled, Reports ambulating normally : doing well Objective - Vital Signs Latest vital signs: Vital Signs Temp Pulse Resp BP Pulse Ox 03/19/23 03:58 98.0 F 77 16 90/51 97 03/19/23 00:00 98.0 F 86 16 102/66 98 03/18/23 20:00 98.1 F 94 16 106/68 96 03/18/23 15:10 95.6 F L 89 16 108/59 100 03/18/23 14:40 86 16 113/65 100 03/18/23 14:19 84 16 125/58 100 03/18/23 13:49 97 16 127/67 100 03/18/23 13:34 76 16 97/59 98 03/18/23 13:19 78 16 98/48 03/18/23 13:05 97.0 F L 85 16 118/58 100 03/18/23 10:31 97.6 F 80 16 117/71 97 Intake and Output 03/18/23 03/19/23 03/19/23 22:59 06:59 14:59 Intake Total 500 Output Total 858 800 Balance -858 -300 Intake: Oral 500 Output: Urine 800 800 Uretheral (Islas) 500 800 Output, Quantitative 58 Blood Loss Other: Voiding Method Indwelling Catheter - Exam Extremities: Present: normal, edema Abdomen: Present: normal appearance, soft Incision: Present: normal, dry, intact Uterus: Present: normal, firm - Labs Labs: Abnormal Lab Results - Last 24 Hours (Table) 03/18/23 03/19/23 Range/Units 10:35 06:52 RBC 3.64 L (3.80-5.40) m/uL Hgb 10.3 L (11.4-16.0) gm/dL Hct 33.7 L 30.9 L (34.0-46.0) % Neutrophils # 9.3 H (1.3-7.7) k/uL Lymphocytes # 0.7 L (1.0-4.8) k/uL Assessment and Plan (1) 37 weeks gestation of Current Visit: Yes Status: Acute Code(s): Z3A.37 - 37 WEEKS GESTATION OF SNOMED Code(s): 19108410 (2) Polyhydramnios Current Visit: Yes Status: Acute Code(s): O40.9XX0 - POLYHYDRAMNIOS, UNSP TRIMESTER, NOT APPLICABLE OR UNSP SNOMED Code(s): 01975348 (3) H/O section Current Visit: Yes Status: Acute Code(s): Z98.891 - HISTORY OF UTERINE SCAR FROM PREVIOUS SURGERY SNOMED Code(s): 144517329 (4) S/P section Current Visit: Yes Status: Acute Code(s): Z98.891 - HISTORY OF UTERINE SCAR FROM PREVIOUS SURGERY SNOMED Code(s): 637315500 Plan: Patient is doing well postoperatively. Plan to continue routine postoperative care, and anticipate discharge home tomorrow
--- NOTE | 2023-03-19 09:05 | P.PN ---
Progress Note - Text Progress Note Date: 03/19/23 Patient was seen, and evaluated at bedside. Postop day 1 for under s jorge a analgesia with Astramorph 300 g for postop pain. Today patient is comfortable sitting in her bed. Today patient rated her pain level 2-3 out of 10 in severity. Denied any fever, drowsiness, confusion. Denied any weakness, tingling sensation in her lower extremities. Denied any bowel or bladder problems. Moving all extremities without any difficulty. Able to walk without any difficulties. Vitals: Hemodynamically stable Continue oral pain medication as per primary team.
[2023-03-19] MEDS: FLUTICASONE 44 MCG INHALER INHALATION SCH ×3 (09:40→20:20)
[2023-03-19] MEDS: SIMETHICONE 80 MG CHEWABLE PO PRN (17:32)
[2023-03-20] MEDS: ACETAMINOPHEN TAB 500 MG TAB PO SCH ×3 (05:36→17:21)
[2023-03-20] MEDS ORDERED: HYDROcodone/APAP 5-325MG 1 EACH TAB PO PRN (08:50)
[2023-03-20] MEDS: IBUPROFEN 600 MG TAB PO SCH ×3 (09:20→21:52)
[2023-03-20] MEDS: PRENATAL VIT-IRON-FOLIC ACID 1 EACH TABLET PO SCH (09:20)
[2023-03-20] MEDS: ESCITALOPRAM 10 MG TAB PO SCH ×2 (09:20→09:57)
[2023-03-20] MEDS: SIMETHICONE 80 MG CHEWABLE PO PRN ×2 (09:21→13:26)
[2023-03-20] MEDS: SENNOSIDES-DOCUSATE SODIUM 1 EACH TAB PO SCH ×2 (09:21→20:33)
[2023-03-20] MEDS ORDERED: ESCITALOPRAM 10 MG TAB PO ONE (10:00)
[2023-03-20] MEDS: HYDROcodone/APAP 5-325MG 1 EACH TAB PO PRN ×3 (11:16→23:52)
[2023-03-20] MEDS: FLUTICASONE 44 MCG INHALER INHALATION SCH ×3 (11:34→21:53)
--- NOTE | 2023-03-20 12:10 | P.PNOBGPC ---
Subjective - Subjective Principal diagnosis: Postop day 3, repeat section with tubal ligation Interval history: Patient is struggling with pain control this morning. She has been nonambulatory secondary to discomfort. She is bottle feeding. Her lochia is minimal to moderate. Patient reports: Reports appetite normal, Reports voiding normally, Reports pain poorly controlled, Reports ambulating normally : doing well, bottle feeding Objective - Vital Signs Latest vital signs: Vital Signs Temp Pulse Pulse Resp BP Pulse Ox 03/20/23 09:00 97.4 F L 87 16 121/81 98 03/20/23 00:00 97.4 F L 90 16 95/59 98 03/19/23 16:00 98.4 F 83 16 97/61 Intake and Output 03/19/23 03/20/23 03/20/23 22:59 06:59 14:59 Other: # Voids 2 2 2 - Exam Extremities: Present: normal, edema Abdomen: Present: normal appearance, soft Incision: Present: normal, dry, intact Uterus: Present: normal, firm Assessment and Plan (1) 37 weeks gestation of Current Visit: Yes Status: Acute Code(s): Z3A.37 - 37 WEEKS GESTATION OF SNOMED Code(s): 41247848 (2) Polyhydramnios Current Visit: Yes Status: Acute Code(s): O40.9XX0 - POLYHYDRAMNIOS, UNSP TRIMESTER, NOT APPLICABLE OR UNSP SNOMED Code(s): 41275768 (3) H/O section Current Visit: Yes Status: Acute Code(s): Z98.891 - HISTORY OF UTERINE SCAR FROM PREVIOUS SURGERY SNOMED Code(s): 147241392 (4) S/P section Current Visit: Yes Status: Acute Code(s): Z98.891 - HISTORY OF UTERINE SCAR FROM PREVIOUS SURGERY SNOMED Code(s): 597717814 Plan: Patient is struggling with poor pain control, pain medication is changed to [place] 5/320 $0.05 she is bottle feeding. We will monitor pain during the day. If possible she would like discharge home tonight or tomorrow.
[2023-03-20] MEDS: HYDROCORTISONE 1% CREAM 30 GM TUBE TOPICAL PRN ×2 (13:26→23:54)
[2023-03-21] MEDS: IBUPROFEN 600 MG TAB PO SCH ×4 (04:18→11:56)
[2023-03-21] MEDS: ACETAMINOPHEN TAB 500 MG TAB PO SCH ×3 (05:32→13:59)
[2023-03-21] MEDS: PRENATAL VIT-IRON-FOLIC ACID 1 EACH TABLET PO SCH (08:25)
[2023-03-21] MEDS: SENNOSIDES-DOCUSATE SODIUM 1 EACH TAB PO SCH (08:25)
--- NOTE | 2023-03-21 08:40 | P.DS ---
Providers Date of admission: 03/18/23 09:57 Expected date of discharge: 03/21/23 Attending physician: Ora Mckay Primary care physician: Stated None - Discharge Diagnosis(es) (1) 37 weeks gestation of Current Visit: Yes Status: Acute (2) Polyhydramnios Current Visit: Yes Status: Acute (3) H/O section Current Visit: Yes Status: Acute (4) S/P section Current Visit: Yes Status: Acute Hospital Course: This is a 32-year-old G3 now P3 that presented to labor and delivery on 03/18 for scheduled repeat section with tubal ligation. Patient was noted to be 37-0/7 weeks, patient was delivered prior to 39 weeks secondary to a diagnosis of polyhydramnios. Patient receiving routine care which was complic ated by diagnosis of poly-hydramnios. Patient was seen by maternal- medicine with amnio reduction done the week prior. Recommendation for delivery at 37 weeks was made. Patient was taken back to the operating suite where repeat section tubal ligation with Filshie clips was performed. For full details on the please see the operative report. Patient delivered a viable male infant at 1229, weight of 7 lbs. 14 oz. Patient has struggled postoperatively with pain control. Yesterday pain meds were adjusted to [place] 5/325 as she is bottle feeding. Patient states this made a large difference in her pain management. On this postoperative day #3 she is stable for discharge. She is a billing and voiding without difficulty. She is tolerating a regular diet. She is bottle feeding. Patient Condition at Discharge: Good Plan - Discharge Summary Discharge Rx Participant: No New Discharge Prescriptions: No Action Albuterol Sulfate [Proair Hfa] 1 - 2 puff INHALATION Q4H PRN #1 inhaler PRN Reason: Shortness Of Breath Albuterol Nebulized [Ventolin Nebulized] 2.5 mg INHALATION Q4H PRN #25 nebu PRN Reason: Shortness Of Breath Escitalopram [Lexapro] 20 mg PO DAILY Fluticasone Propionate 44 Mcg [Flovent 44 Mcg Inhaler] 1 - 2 puff INHALATION TID Vit No.179/Iron/Folic [ Tablet] 1 tab PO ONCE Discharge Medication List Albuterol Nebulized [Ventolin Nebulized] 2.5 mg INHALATION Q4H PRN #25 nebu 10/18/19 [Rx] Albuterol Sulfate [Proair Hfa] 1 - 2 puff INHALATION Q4H PRN #1 inhaler 10/18/19 [Rx] Escitalopram [Lexapro] 20 mg PO DAILY 09/11/22 [History] Fluticasone Propionate 44 Mcg [Flovent 44 Mcg Inhaler] 1 - 2 puff INHALATION TID 01/03/23 [History] Vit No.179/Iron/Folic [ Tablet] 1 tab PO ONCE 01/03/23 [History] Follow up Appointment(s)/Referral(s): Ora Mckay DO [Doctor of Osteopathic Medicine] - 2 Weeks Patient Instructions/Handouts: (DC), (GEN) Activity/Diet/Wound Care/Special Instructions: No tub baths or intercourse until 6 weeks postoperatively. Patient is counseled on [place] for pain control, and discussion was had regarding opiate addiction. Patient states understanding but notes need for pain control. Patient is to call the office make a routine postoperative appointment in 2 weeks. Should patient concerns prior to this plan and she is urged to be seen at the office. Discharge Disposition: HOME SELF-CARE
[2023-03-21] MEDS ORDERED: ESCITALOPRAM 20 MG TAB PO SCH (09:00)
[2023-03-21 10:18] VITALS: BP 103/70; PULSE 99; RESP 17; TEMP 97.4
[2023-03-21] MEDS: FLUTICASONE 44 MCG INHALER INHALATION SCH ×2 (13:58→14:00)
--- NOTE | 2023-03-22 12:27 | CDI ---
Documentation Clarification Form Date: 03/22/23 From: Katarzyna Diaz Admit Date: 03/18/2023 09:57:00 AM Patient Name: Allison Robles Visit Number: [id number] Discharge Date: 03/21/2023 01:00:00 PM ATTENTION: The Clinical Documentation Specialists (CDI) and [facility] Coding Staff appreciate your assistance in clarifying documentation. Please respond to the clarification below the line at the bottom and electronically sign. The CDI & [facility] Coding staff will review the response and follow-up if needed. Please note: Queries are made part of the Legal Health Record. If you have any questions, please contact the author of this message via ITS. Dr. Ora Mckay, Your patient is on Escitalopram/Lexapro per the medication records. Based on this information and the findings below, is there an additional diagnosis that is clinically appropriate for this patient? Patient history/risk factors: asthma, childbirth Clinical Indicators: Patient is taking Lexapram. Is there an additional diagnosis that is clinically appropriate for this patient? [ ] Depression specify [ X ] Anxiety specify __GAD [ ] PTSD [ ] No additional diagnosis/Not clinically significant [ ] Unable to determine [ ] Other, please specify MTDD
== END 2023-03-21 13:00 | disposition home or self-care (01) | DRG 785 ==
LOC: 4FBP 09:57
PROVIDERS: ADMIT Obstetrics & Gynecology Obstetrics; ATTEND Obstetrics & Gynecology Obstetrics
PROC: 0UL70CZ Occlusion of Bilateral Fallopian Tubes with Extraluminal Device, Open Approach (ICD-10-PCS; principal; 2023-03-18 12:00)
PROC: 10D00Z1 Extraction of Products of Conception, Low, Open Approach (ICD-10-PCS; principal; 2023-03-18 12:00)
DX: O34.211 Maternal care for low transverse scar from previous cesarean delivery (principal); O40.3XX0 Polyhydramnios, third trimester, not applicable or unspecified; Z30.2 Encounter for sterilization; Z37.0 Single live birth; Z28.310 Unvaccinated for COVID-19; Z3A.37 37 weeks gestation of pregnancy; O99.344 Other mental disorders complicating childbirth; F41.1 Generalized anxiety disorder; J45.909 Unspecified asthma, uncomplicated; O99.52 Diseases of the respiratory system complicating childbirth; Z79.899 Other long term (current) drug therapy
CPT/HCPCS: 85025; 86850; 86900; 86901; 88307

== ENCOUNTER 2024-12-13 16:52 | Emergency (ER) | payer BC, OTHER ==
--- NOTE | 2024-12-13 17:46 | ED ---
Extremity Problem HPI - General Source: patient, RN notes reviewed Mode of arrival: ambulatory Limitations: no limitations <Stacy Basurto - Last Filed: 12/13/24 19:56> <Jeannie Hatfieldul - Last Filed: 12/13/24 20:03> - General Chief complaint: Extremity Problem,Nontraumatic Stated complaint: left arm pain,numbness in bilateral hands,headache Time Seen by Provider: 12/13/24 17:01 - History of Present Illness Initial comments: Patient is a 34-year-old female with mixed connective tissue disorder presenting for sudden onset sharp left arm pain that started around 1400. She states that approximately 30 minutes later she developed bilateral hand numbness. At approximately 1640 she felt another sharp left arm pain and decided to come to the emergency department. She is also reporting a frontal headache that she has had throughout the day that worsened about 45 minutes after the initial arm pain. She describes the headache as throbbing and 56/10. She reports that she has had extremity weakness in the past with her mixed connective tissue disorder but never numbness. She was diagnosed about 1 year ago and sees a juvenile court liaison in [place]. Reports nausea, chest tightness, anxiety. Denies fever/chills, emesis, chest pain, dyspnea. (Stacy Basurto) - Related Data Home Medications Medication Instructions Recorded Confirmed Escitalopram [Lexapro] 20 mg PO DAILY 09/11/22 03/20/23 Fluticasone Propionate 44 Mcg 1 - 2 puff INHALATION TID 01/03/23 03/15/23 [Flovent 44 Mcg Inhaler] Vit No.179/Iron/Folic 1 tab PO ONCE 01/03/23 03/15/23 [ Tablet] Previous Rx's Medication Instructions Recorded Albuterol Nebulized [Ventolin 2.5 mg INHALATION Q4H PRN #25 nebu 10/18/19 Nebulized] Albuterol Sulfate [Proair Hfa] 1 - 2 puff INHALATION Q4H PRN #1 10/18/19 inhaler Allergies Allergy/AdvReac Type Severity Reaction Status Date / Time house dust Allergy Mild Wheezing Verified 12/13/24 16:58 Review of Systems ROS Other: All systems not noted in ROS Statement are negative. Constitutional: Denies: fever, chills Eyes: Denies: vision change ENT: Denies: hearing loss Respiratory: Denies: dyspnea Cardiovascular: Denies: chest pain, dyspnea on exertion, edema Gastrointestinal: Reports: nausea. Denies: abdominal pain, vomiting Genitourinary: Denies: dysuria, hematuria Skin: Denies: rash Neurological: Reports: headache, numbness (Hands). Denies: weakness <Stacy Basurto - Last Filed: 12/13/24 19:56> ROS Other: All systems not noted in ROS Statement are negative. <Jimmie Hatfield - Last Filed: 12/13/24 20:03> ROS Statement: Those systems with pertinent positive or pertinent negative responses have been documented in the HPI. Past Medical History Past Medical History: Asthma Additional Past Medical History / Comment(s): mixed connective tissue disease(MCTD) History of Any Multi-Drug Resistant Organisms: None Reported Past Surgical History: Adenoidectomy, Section, Tonsillectomy Past Anesthesia/Blood Transfusion Reactions: No Reported Reaction Past Psychological History: Depression, PTSD Smoking Status: Never smoker - Past Family History Mother Family Medical History: Thyroid Disorder <Stacy Basurto - Last Filed: 12/13/24 19:56> General Exam Limitations: no limitations General appearance: alert, in no apparent distress, anxious Head exam: Present: atraumatic Eye exam: Present: normal appearance, PERRL, EOMI ENT exam: Present: normal exam, normal oropharynx, mucous membranes moist, normal external ear exam Neck exam: Present: full ROM Respiratory exam: Present: normal lung sounds bilaterally. Absent: respiratory distress, wheezes, rales, rhonchi Cardiovascular Exam: Present: regular rate, normal rhythm, normal heart sounds. Absent: systolic murmur, diastolic murmur GI/Abdominal exam: Present: soft, normal bowel sounds. Absent: distended, tenderness, guarding, rebound Extremities exam: Present: normal capillary refill. Absent: full ROM, tenderness, pedal edema Neurological exam: Present: alert, oriented X3, CN II-XII intact (CN V1: hyperesthesia) Psychiatric exam: Present: normal affect, normal mood Skin exam: Present: warm, dry, intact <Stacy Basurto - Last Filed: 12/13/24 19:56> Course Vital Signs 12/13/24 12/13/24 16:54 19:36 Temperature 97.8 F 98 F Pulse Rate 99 84 Respiratory 16 19 Rate Blood Pressure 136/82 105/77 O2 Sat by Pulse 100 100 Oximetry Medical Decision Making - Lab Data Result diagrams: 12/13/24 17:44 12/13/24 17:44 <Stacy Basurto - Last Filed: 12/13/24 19:56> - Lab Data Result diagrams: 12/13/24 17:44 12/13/24 17:44 <Jimmie Hatfield - Last Filed: 12/13/24 20:03> - Medical Decision Making Was pt. sent in by a medical professional or institution (, PA, ELEMENTARY SCHOOL COUNSELOR, urgent care, hospital, or skilled nursing...) When possible be specific @ -No Did you speak to anyone other than the patient for history (EMS, parent, family, police, friend...)? What history was obtained from this source @ -No Did you review nursing and triage notes (agree or disagree)? Why? @ -I reviewed and agree with nursing and triage notes Were old charts reviewed (outside hosp., previous admission, EMS record, old EKG, old radiological studies, urgent care reports/EKG's, skilled nursing records)? Report findings @ -No old charts were reviewed Differential Diagnosis? @ -Mixed connective tissue disorder, trigeminal neuralgia, vertebral artery dissection, cranial hemorrhage, intracranial mass, radiculopathy. There is not meant to be and all-inclusive list. EKG interpreted by me (3pts min.). @ -Sinus rhythm, rate 84 bpm, normal axis deviation, no ST segment changes X-rays interpreted by me (1pt min.). @ -None done CT interpreted by me (1pt min.). @ -No acute intracranial hemorrhage or mass U/S interpreted by me (1pt. min.). @ -None done What testing was considered but not performed or refused? (CT, X-rays, U/S, labs)? Why? @ -None What meds were considered but not given or refused? Why? @ -None Did you discuss the management of the patient with other professionals (professionals i.e. , PA, ELEMENTARY SCHOOL COUNSELOR, lab, RT, psych nurse, social services coordinator, psychologist personnel, teacher, workplace rehabilitation officer, gearcase assembler)? Give summary @ -No Was smoking cessation discussed for >3mins.? @ -No Was critical care preformed (if so, how long)? @ -No Were there social determinants of health that impacted care today? How? (Homelessness, low income, unemployed, alcoholism, drug addiction, transportation, low edu. Level, literacy, decrease access to med. care, fci, rehab)? @ -No Was there de-escalation of care discussed even if they declined (Discuss DNR or withdrawal of care, Hospice)? DNR status @ -No What co-morbidities impacted this encounter? (DM, HTN, Smoking, COPD, CAD, Cancer, CVA, ARF, Chemo, Hep., AIDS, mental health diagnosis, sleep apnea, mo rbid obesity)? @ -None Was patient admitted / discharged? Hospital course, mention meds given and ro egegik, prescriptions, significant lab abnormalities, going to OR and other pertinent info. @ -Patient is a 34-year-old female with mixed connective tissue disorder presenting with sudden onset sharp left arm pain and bilateral hand numbness. Muscle strength 5/5 throughout. CBC, BMP, beta-hCG, EKG, and CT brain without contrast were ordered. CBC, BMP unremarkable. Beta-hCG negative. EKG as above . CT brain showed no acute intracranial process, left sphenoid sinus mucosal disease, correlate clinically for acute sinusitis. Patient was given Tylenol 650 mg p.o. Patient was discharged home with return precautions discussed. Recommend patient follow-up with PCP in 1 to 2 days. Undiagnosed new problem with uncertain prognosis? @ -No Drug Therapy requiring intensive monitoring for toxicity (Heparin, Nitro, Insulin, Cardizem)? @ -No Were any procedures done? @ -No Diagnosis/symptom? @ -Headache, paresthesias Acute, or Chronic, or Acute on Chronic? @ -Acute Uncomplicated (without systemic symptoms) or Complicated (systemic symptoms)? @ -Uncomplicated Side effects of treatment? @ -No Exacerbation, Progression, or Severe Exacerbation? @ -No Poses a threat to life or bodily function? How? (Chest pain, USA, MS, pneumonia, PE, COPD, DKA, ARF, appy, cholecystitis, CVA, Diverticulitis, Homicidal, Suicidal, threat to staff... and all critical care pts) @ -No (Stacy Basurto) I personally saw the patient and performed the critical portion of the service. I discussed the patient care with the resident (Dr. Louise). I directed management, care planning and final disposition of the patient. This includes, but not limited to, review of all lab work, radiological studies, EKG's, consultations, vital signs, and nursing notes. EKG interpreted by me (3pts min.) @ 17:23- Normal sinus rhythm, ventricular rate of 83 bpm, no ectopy, normal OH and QRS intervals, normal QT interval, normal axis, no ST or T wave abnormality X-Rays interpreted by me (1 pt min.) @None CT interpreted by me ( 1pt min.) @ Noncontrast head CT was reviewed myself and shows no acute intracranial abnormality. I agree with the radiologist's interpretation. U/S interpreted by me (1 pt min.) @None (Jimmie Hatfield) - Lab Data Lab Results 12/13/24 12/13/24 Range/Units 17:44 17:44 WBC 6.75 (4.50-10.00) 10*3/uL RBC 4.38 (4.10-5.20) 10*6/uL Hgb 13.0 (12.0-15.0) g/dL Hct 37.0 L (37.2-46.3) % MCV 84.5 (80.0-97.0) fL MCH 29.7 (27.0-32.0) pg MCHC 35.1 (32.0-37.0) g/dL Plt Count 345 (140-440) 10*3/uL MPV 9.2 L (9.5-12.2) fL Immature Gran % (Auto) 0.3 % Neutrophils % 74.4 % Lymphocytes % 15.7 % Monocytes % 7.7 % Eosinophils % 1.5 % Basophils % 0.4 % Immature Gran # 0.02 (0.00-0.04) 10*3/uL Neutrophils # 5.02 (1.80-7.70) 10*3/uL Lymphocytes # 1.06 (0.90-5.00) 10*3/uL Monocytes # 0.52 (0.20-1.00) 10*3/uL Eosinophils # 0.10 (0.04-0.35) 10*3/uL Basophils # 0.03 (0.00-0.10) 10*3/uL Sodium 138 (137-145) mmol/L Potassium 4.2 (3.5-5.1) mmol/L Chloride 101 (98-107) mmol/L Carbon Dioxide 27 (22-30) mmol/L Anion Gap 10 mmol/L BUN 12 (7-17) mg/dL Creatinine 0.71 (0.52-1.04) mg/dL Est GFR (CKD-EPI)AfAm >90 (>60 ml/min/1.73 sqM) Est GFR (CKD-EPI)NonAf >90 (>60 ml/min/1.73 sqM) Glucose 94 (74-99) mg/dL Calcium 9.6 (8.4-10.2) mg/dL HCG, Quant <2.4 mIU/mL Disposition Is patient prescribed a controlled substance at d/c from ED?: No Time of Disposition: 19:38 <Stacy Basurto - Last Filed: 12/13/24 19:56> <Jimmie Hatfield - Last Filed: 12/13/24 20:03> Clinical Impression: Paresthesia, Headache Disposition: HOME SELF-CARE Condition: Stable Instructions (If sedation given, give patient instructions): Acute Headache (ED) Additional Instructions: Every disease is a spectrum and a small chance still exists that a serious condition could develop, for this reason, please monitor yourself closely for new, changing or worsening symptoms, symptoms that persist beyond 48 hours, fever, inability to tolerate/keep down fluids or your medications, inability to follow up with outpatient providers as instructed and should you experience these symptoms or should you have any further concerns for your wellbeing please return to the ED or call 911 immediately. Your pain can be treated with ibuprofen and acetaminophen. You can take up to 400-600 mg of ibuprofen (Advil, Motrin) 3 times daily (every 8 hours) but can also use lower doses if this relieves your pain. Some people prefer naproxen (Aleve, Naprosyn) which can be taken in doses of 500 mg up to twice a day. Do not take both of these medicines together, and do not combine either with ketorolac (Toradol), meloxicam (Mobic), or indomethacin (Tivorbex). Some people can develop stomach discomfort with higher doses of either ibuprofen or naproxen, if this develops decrease your dose or stop taking it. If you need to take this dose daily for more than a week, please schedule an appointment for re-evaluation with your PCP. Please take these medications with food. You can take up to 1000 mg of acetaminophen (Tylenol) every 6 hours. Be careful as this is included in some medicines like Nyquil, Foster, Percocet, Vicodin, STANBACK, Goody's Powders, and Excedrin. You can also use lidocaine patches for topical pain. You can purchase 4% patches over the counter at most drug stores. These can be helpful for pain from your muscles or bones. PLEASE call your primary care physician as soon as possible to arrange / discuss plan for followup appointment. Appointment in the next 1-3 days is strongly encouraged if possible. PLEASE let us know here before you leave if there is anything further we can do to be of any assistance. Take care and feel Better! Referrals: None,Stated [REFERRING] - 1-2 days
[2024-12-13 17:52] LABS: Basophils # (A) 0.03 10*3/uL (0.00-0.10); Basophils % (A) 0.4 %; Eosinophils % (A) 1.5 %; Lymphocytes # (A) 1.06 10*3/uL (0.90-5.00); Lymphocytes % (A) 15.7 %; MCH 29.7 pg (27.0-32.0); MCHC 35.1 g/dL (32.0-37.0); MCV 84.5 fL (80.0-97.0); Mean Platelet Volume 9.2 fL (9.5-12.2); Monocytes # (A) 0.52 10*3/uL (0.20-1.00); Monocytes % (A) 7.7 %; Neutrophils # (A) 5.02 10*3/uL (1.80-7.70); Neutrophils % (A) 74.4 %; Platelet Count 345 10*3/uL (140-440); RBC 4.38 10*6/uL (4.10-5.20); WBC 6.75 10*3/uL (4.50-10.00)
[2024-12-13 18:05] LABS: African American GFR (CKD) >90 (>60 ml/min/1.73 sqM); Anion Gap 10 mmol/L; Blood Urea Nitrogen 12 mg/dL (7-17); Calcium 9.6 mg/dL (8.4-10.2); Carbon Dioxide 27 mmol/L (22-30); Chloride 101 mmol/L (98-107); Glucose 94 mg/dL (74-99); Non-African American GFR(CKD) >90 (>60 ml/min/1.73 sqM); Potassium 4.2 mmol/L (3.5-5.1); Sodium 138 mmol/L (137-145)
[2024-12-13 18:22] LABS: HCG,Quantitative Serum <2.4 mIU/mL
[2024-12-13] MEDS: ACETAMINOPHEN TAB 325 MG TAB PO STA ×2 (18:47→19:45)
--- NOTE | 2024-12-13 19:10 | CT ---
EXAMINATION TYPE: CT brain wo con CT DLP: 1112.2 mGycm, Automated exposure control for dose reduction was used. DATE OF EXAM: 12/13/2024 6:54 PM COMPARISON: None. CLINICAL INDICATION:Female, 34 years old with history of b/l hand numbness, headache, hand numbness TECHNIQUE: Brain: Multiple axial CT images of the brain were obtained without IV contrast. . Coronal and sagitta l reformats reviewed. FINDINGS: Brain: Extra-axial spaces: No abnormal extra-axial fluid collections. Ventricular system: Within normal limits Cerebral parenchyma: No acute intraparenchymal hemorrhage or mass effect. The mueller-white junction is well differentiated. Cerebellum: Unremarkable. Mass effect: No evidence of midline shift. Intracranial vasculature: unremarkable Soft tissues: Normal. Calvarium/osseous structures: No depressed skull fracture. Paranasal sinuses and mastoid air cells: The mastoid air cells are clear. Moderate mucosal thickening of the left sphenoid sinus. The remaining paranasal sinuses are clear. Right sigmoid sinus Visualized orbits: Orbital contents are intact. IMPRESSION: 1. No acute intracranial process. 2. Left sphenoid sinus mucosal disease. Correlate clinically for acute sinusitis. [facility], , 12/13/2024 7:08 PM
[2024-12-13 19:37] VITALS: BP 105/77; PULSE 84; RESP 19; TEMP 98
== END 2024-12-13 19:50 | disposition home or self-care (01) ==
LOC: EC 16:52
DX: R20.2 Paresthesia of skin (principal); R51.9 Headache, unspecified; Z88.8 Allergy status to other drugs, medicaments and biological substances
CPT/HCPCS: 36415; 70450; 80048; 84702; 85025; 93005; 99284